=== PATIENT | female | born 1970 | race Caucasian/White ===

== ENCOUNTER → 2020-11-06 | Day surgery (SDC) | payer MEDICARE, OTHER ==
[~2020-11-06] MED LIST: ACETAMINOPHEN325 MG PO; ALBUTEROL2.5 MG/3 M INH; ALLERGY RELIEF10 M1 PO; AMMONIUM LACTA140 GM TP; CITALOPRAM HBR20 MG PO; FLONASE 0.05% N16 GM; GEMFIBROZIL600 MG PO; INCRUSE ELLI62.5 MCG INH; INVEGA9 MG PO; LEVOTHYROXINE112 MCG PO; LITHIUM CARBON300 M3 PO; PATADAY2.5 ML EYEBOTH; QUESTRAN LIGHT210 GM PO; RESTASIS 0.05%1 EACH OD; TOLTERODINE TART2 M1 PO; VITAMIN D250 MCG PO
== END | disposition home or self-care (01) ==
LOC: OR 07:57
DX: K64.8 Other hemorrhoids (principal); K52.9 Noninfective gastroenteritis and colitis, unspecified; K91.5 Postcholecystectomy syndrome; E78.5 Hyperlipidemia, unspecified; E03.9 Hypothyroidism, unspecified; J44.9 Chronic obstructive pulmonary disease, unspecified; K76.0 Fatty (change of) liver, not elsewhere classified; E66.01 Morbid (severe) obesity due to excess calories; F17.219 Nicotine dependence, cigarettes, with unspecified nicotine-induced disorders; Z86.010 Personal history of colon polyps; Z68.36 Body mass index [BMI] 36.0-36.9, adult
CPT/HCPCS: J2704; J7040